=== PATIENT | male | born 1965 | race Caucasian/White ===

== ENCOUNTER → 2018-04-25 | Outpatient (CLI) | payer OTHER ==
--- NOTE | 2018-04-25 12:49 | XR ---
Lumbosacral spine HISTORY: Low back pain with radiculopathy 5 views of the lumbar spine. Correlation to CT lumbar spine 09/27/2012 There is multilevel spondylosis. Mild spinal curvature is noted. Lumbar vertebral bodies show preserv ed height and bone mineralization. No evident spondylolysis or spondylolisthesis. Loss of disc height noted especially L4-5, L5-S1 with associated vacuum phenomenon. Vascular calcifications noted within the aorta. Sclerosis present in the posterior elements of the lower lumbar spine. IMPRESSION: Degenerative disc disease, facet arthropathy.
== END | disposition home or self-care (01) ==
LOC: RADXRYALE 10:13
PROVIDERS: ATTEND Nurse Practitioner
DX: M51.17 Intervertebral disc disorders with radiculopathy, lumbosacral region (principal); M46.87 Other specified inflammatory spondylopathies, lumbosacral region
CPT/HCPCS: 72110